=== PATIENT | male | born 1990 | race Caucasian/White ===

== ENCOUNTER 2025-02-14 22:06 | Emergency (ER) | payer SELFPAY ==
--- NOTE | ~2025-02-14 | XR_ITS ---
HISTORY: punch tv 3 days ago, RED, SWOLLEN, LIMITED ROM COMPARISON: None TECHNIQUE: 3 views of the right hand were performed. FINDINGS: No acute displaced fracture is identified. The joint spaces are preserved. The carpal arcs are intact. Bone mineralization is age-appropriate. Significant dorsal soft tissue swelling. No radiopaque foreign body is identified. IMPRESSION: Significant soft tissue swelling, without acute displaced fracture as detailed above. Reviewed, dictated and finalized at location A.
--- OUTSIDE RECORDS SUMMARY | 2025-02-14 22:08 | XMS_ITS | Clinical Summary ---
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 Phone Unavailable Primary Care Provider Unavailabl e Immunizations Immunization Administration Dates Next Due Covid-19, Mrna, Lnp-s, PF, 5 0 mcg/0.25 mL dose (Moderna) 09/19/2021 Social History Tobacco Use Types Packs/Day Years Used Date Smoking Tobacco: Never Assessed Sex and Gender Information Value Date Recorded Sex Assigned at Not on file Legal Sex Male 10:10 PM CDT Gender Identity Not on file Sexual Orientation Not on file Plan of Treatment Health Maintenance Due Date Last Done Comments Hepatitis C Virus (HCV) Screening 1988 TdaP Immunization 1988 Hepatitis B Immunization (1 of 3 - 19+ 3-dose series) 2007 Influenza Immunization (#1) 2024 07/14/2014 SARS-COV-2 Immunization ( season) 2024 09/19/2021, 01/16/2021, 12/19/2020 Respiratory Syncytial Virus (RSV) Immunization (Adult) (1 - 1-dose 75+ series) 2063 DTaP/Tdap/Td Immunization Discontinued 01/29/1994 Meningococcal Immunization (ACWY) Aged Out No longer eligible based on patient's age to complete this topic Pneumococcal Immunization Combined Aged Out No longer eligible based on patient's age to complete this topic Rotavirus Immunization Aged Out No lo nger eligible based on patient's age to complete this topic
[2025-02-14 22:28] VITALS: BP 101/56; PULSE 71; RESP 18; O2SAT 99
[2025-02-14 22:30] VITALS: TEMP 36.7
--- NOTE | 2025-02-14 22:54 | ED_ITS ---
HPI - Recheck/Abnormal Lab/Rx General Chief Complaint: Recheck/Abnormal Lab/Rx <Amanda Quezada PA-C - Last Filed: 02/15/25 03:30> Stated Complaint: swelling, pain-sutures <RENATA Dobbins Last Filed: 02/15/25 03:30> Time Seen by Provider: 02/14/25 22:33 <RENATA Dobbins Last Filed: 02/15/25 03:30> History of Present Illness HPI narrative: 34-year-old male presents to the emergency department for redness and pain to the dorsum of his right hand. Patient had 7 sutures placed to his right hand 3 days ago at [place] emergency department after punching and TV. States he had x-rays performed but is uncertain of the results. He had 7 stitches placed to the dorsum of his right hand. He states that [place] told him that they were calling and antibiotics, however they were not with the pharmacy. States 6 hours ago he began developing redness, pain and swelling around his suture site. He also notes a clear and bloody drainage. Denies fevers. <Amanda Quezada PA-C - Last Filed: 02/15/25 03:30> Related Data Allergies/Adverse Reactions: Allergies Allergy/AdvReac Type Severity Reaction Status Date / Time morphine Allergy Hives Verified 02/14/25 22:07 <Amanda Quezada PA-C - Last Filed: 02/15/25 03:30> Review of Systems 2 Review of Systems: All systems reviewed & are unremarkable except as noted in HPI and below <RENATA Dobbins Last Filed: 02/15/25 03:30> Exam 2 Narrative: GENERAL: Well-appearing, well-nourished, and in no acute distress. HEAD: Normocephalic, atraumatic. EYES: EOMI. ENT: Nares clear, no rhinorrhea or epistaxis. Mucous membranes moist. NECK: Supple. CHEST: Clear to auscultation. No respiratory distress. HEART: Regular rate and rhythm. No murmur heard. Normal peripheral pulses. EXTREMITIES: Normal range of motion. No edema. SKIN: Healing laceration of the dorsum of the right hand with [address], no wound dehiscence. There is surrounding erythema, warmth and tenderness, no spontaneous drainage. Swelling noted to the dorsum of the hand. Limited range of motion secondary to pain. Cap refill less than 2 all digits. Radial pulse 2 +. Compartments soft. Sensation intact. NEURO: No focal deficits. Alert and oriented x3 <RENATA Dobbins Last Filed: 02/15/25 03:30> Course PORT SURVEYOR/PA Physician Supervision I agree with midlevel documentation; I performed the medical decision making component of this evaluation. <Ping Stapleton MD - Last Filed: 02/15/25 03:42> Vital Signs Vital signs: Vital Signs Pulse Rate 71 02/14/25 22:28 Respiratory Rate 18 02/14/25 22:28 Blood Pressure 101/56 L 02/14/25 22:28 Pulse Oximetry 99 02/14/25 22:28 Temperature 98.1 F 02/14/25 22:30 Pulse Rate 102 H 02/15/25 03:28 Respiratory Rate 19 02/15/25 03:28 Blood Pressure 144/75 H 02/15/25 03:28 Pulse Oximetry 99 02/15/25 03:28 <Amanda Quezada PA-C - Last Filed: 02/15/25 03:30> Vital Signs Pulse Rate 71 02/14/25 22:28 Respiratory Rate 18 02/14/25 22:28 Blood Pressure 101/56 L 02/14/25 22:28 Pulse Oximetry 99 02/14/25 22:28 Temperature 98.1 F 02/14/25 22:30 Pulse Rate 102 H 02/15/25 03:28 Respiratory Rate 19 02/15/25 03:28 Blood Pressure 144/75 H 02/15/25 03:28 Pulse Oximetry 99 02/15/25 03:28 <Ping Stapleton MD - Last Filed: 02/15/25 03:42> Procedures Other Procedure Procedure 1: Other Procedure: Seven sutures removed at the dorsum of the right hand with no complications. <RENATA Dobbins Last Filed: 02/15/25 03:30> MDM - Recheck/Abnormal Lab/Rx MDM Narrative Medical decision making narrative: 34-year-old male presents to emergency department for swelling and pain to the dorsum of his right hand that started today. Patient had 7 sutures placed at an outside hospital 3 days ago. Patient is afebrile and nontoxic appearing. Exam is significant for the cellulitis to the dorsum of the right hand with 7 overlying intact sutures. Sutures were removed which opened the wound and drained approximately 5 cc of purulence and serosanguineous fluid with immediate improvement in symptoms. X-ray does show significant soft tissue swelling without acute displaced fracture. Given rapidly progressing cellulitis, patient agreeable to lab work and a dose of IV antibiotics. CBC does show leukocytosis with a white count of 17.6. Chemistries are unremarkable. Patient received IV fluids, clindamycin, [place] and Toradol with improvement. The wound was closed loosely with Steri-Strips. I did offer admission for IV antibiotics however he declined he would like to trial oral antibiotics. He was advised to follow-up closely with Hand surgery and given strict ED return precautions. He is agreeable with the plan verbalized understanding. Discharged in stable condition. <Amanda Quezaad PA-C - Last Filed: 02/15/25 03:30> 34-year-old male presents to emergency department for swelling and pain to the dorsum of his right hand that started today. Patient had 7 sutures placed at an outside hospital 3 days ago. Patient is afebrile and nontoxic appearing. Exam is significant for the cellulitis to the dorsum of the right hand with 7 overlying intact sutures. Sutures were removed which opened the wound and drained approximately 5 cc of purulence and serosanguineous fluid with immediate improvement in symptoms. X-ray does show significant soft tissue swelling without acute displaced fracture. Given rapidly progressing cellulitis, patient agreeable to lab work and a dose of IV antibiotics. CBC does show leukocytosis with a white count of 17.6. Chemistries are unremarkable. Patient received IV fluids, clindamycin, [place] and Toradol with improvement. The wound was closed loosely with Steri-Strips. I did offer admission for IV antibiotics however he declined he would like to trial oral antibiotics and go home at this time. He was advised to follow-up closely with Hand surgery and given strict ED return precautions. He is agreeable with the plan verbalized understanding. Discharged in stable condition. <Ping Stapleton MD - Last Filed: 02/15/25 03:42> Lab Data Result diagrams: 02/15/25 01:27 02/15/25 01:27 <Amanda Quezada PA-C - Last Filed: 02/15/25 03:30> Labs: Lab Results 02/15/25 Range/Units 01:27 WBC 17.6 H (4.5-10.0) K/mm3 RBC 4.61 (4.6-6.20) M/mm3 Hgb 15.1 (14.0-18.0) g/dL Hct 44.9 (42.0-52.0) % MCV 97.4 (80-100) fl MCH 32.8 (26-34) pg MCHC 33.6 (32-36) g/dl RDW 12.9 (11.5-14.5) % Plt Count 264 (150-375) k/mm3 MPV 10.1 (7.4-10.4) fl Immature Gran % (Auto) 0.3 (0-0.5) % Neut % (Auto) 87.9 H (45.5-73.1) % Lymph % (Auto) 5.3 L (18.3-44.2) % [place] % (Auto) 6.0 (2.6-8.5) % Eos % (Auto) 0.2 (0-4.4) % Baso % (Auto) 0.3 (0.2-1.2) % Lymph # (Auto) 0.93 (0.9-3.2) K/mm3 [place] # (Auto) 1.1 H (0.1-0.6) K/mm3 Eos # (Auto) 0.0 (0-0.3) K/mm3 Baso # (Auto) 0.1 (0.0-0.1) K/mm3 Abs Immat Gran (auto) 0.06 H (0.00-0.031) K/mm3 Absolute Neuts (auto) 15.5 H (1.3-6.7) K/mm3 Absolute Nucleated RBC 0.000 (0.0-0.012) K/mm3 Nucleated RBC % 0.0 (0.0-0.2) % Sodium 141 (137-145) mmol/L Potassium 3.5 (3.4-5.0) mmol/L Chloride 102 (98-107) mmol/L Carbon Dioxide 28 (22-30) mmol/L Anion Gap 11 (4-12) mmol/L BUN 14 (9-20) mg/dL Creatinine 0.89 (0.7-1.3) mg/dL Estim Creat Clear Calc 114 ml/min Estimated GFR > 60 (59 - ) Glucose 112 H (65-110) mg/dL Calcium 10.0 (8.4-10.2) mg/dL <Amanda Quezada PA-C - Last Filed: 02/15/25 03:30> Lab Results 02/15/25 Range/Units 01:27 WBC 17.6 H (4.5-10.0) K/mm3 RBC 4.61 (4.6-6.20) M/mm3 Hgb 15.1 (14.0-18.0) g/dL Hct 44.9 (42.0-52.0) % MCV 97.4 (80-100) fl MCH 32.8 (26-34) pg MCHC 33.6 (32-36) g/dl RDW 12.9 (11.5-14.5) % Plt Count 264 (150-375) k/mm3 MPV 10.1 (7.4-10.4) fl Immature Gran % (Auto) 0.3 (0-0.5) % Neut % (Auto) 87.9 H (45.5-73.1) % Lymph % (Auto) 5.3 L (18.3-44.2) % [place] % (Auto) 6.0 (2.6-8.5) % Eos % (Auto) 0.2 (0-4.4) % Baso % (Auto) 0.3 (0.2-1.2) % Lymph # (Auto) 0.93 (0.9-3.2) K/mm3 [place] # (Auto) 1.1 H (0.1-0.6) K/mm3 Eos # (Auto) 0.0 (0-0.3) K/mm3 Baso # (Auto) 0.1 (0.0-0.1) K/mm3 Abs Immat Gran (auto) 0.06 H (0.00-0.031) K/mm3 Absolute Neuts (auto) 15.5 H (1.3-6.7) K/mm3 Absolute Nucleated RBC 0.000 (0.0-0.012) K/mm3 Nucleated RBC % 0.0 (0.0-0.2) % Sodium 141 (137-145) mmol/L Potassium 3.5 (3.4-5.0) mmol/L Chloride 102 (98-107) mmol/L Carbon Dioxide 28 (22-30) mmol/L Anion Gap 11 (4-12) mmol/L BUN 14 (9-20) mg/dL Creatinine 0.89 (0.7-1.3) mg/dL Estim Creat Clear Calc 114 ml/min Estimated GFR > 60 (59 - ) Glucose 112 H (65-110) mg/dL Calcium 10.0 (8.4-10.2) mg/dL <Ping Stapleton MD - Last Filed: 02/15/25 03:42> Discharge Plan Discharge Clinical Impression: Infection involving suture with abscess Cellulitis Qualifiers: Site of cellulitis: extremity Site of cellulitis of extremity: upper extremity Laterality: right Qualified Code(s): L03.113 - Cellulitis of right upper limb <Amanda Quezada PA-C - Last Filed: 02/15/25 03:30> Patient Disposition: Home <RENATA Dobbins Last Filed: 02/15/25 03:30> Condition: Stable <RENATA Dobbins Last Filed: 02/15/25 03:30> Instructions: Antibiotic Form, Cellulitis (ED), Abscess (ED) <Amanda Quezada PA-C - Last Filed: 02/15/25 03:30> Additional Instructions: Your evaluated in the emergency department for an infection to the stitches in her right hand. Seven stitches were removed and Steri-Strips replaced. You were found have an infection to her hand. Please take the antibiotics as directed. Follow-up closely with a hand surgeon. Return to the emergency department if you developed spreading or worsening redness, fever, increasing pain, or other concerning symptoms. <Amanda Quezada PA-C - Last Filed: 02/15/25 03:30> Patient Language: Georgian <RENATA Dobbins Last Filed: 02/15/25 03:30> Prescriptions: New doxycycline monohydrate 100 mg capsule 100 mg PO BID Qty: 14 0RF naproxen 500 mg tablet 500 mg PO BID PRN (Reason: pain) Qty: 20 0RF <Amanda Quezada PA-C - Last Filed: 02/15/25 03:30> Follow-up/Referrals: Saloni Christine MD [Physician] - PHYSICIAN,[employer] COMPOUNDER [Primary Care Provider] - <Amanda Quezada PA-C - Last Filed: 02/15/25 03:30> Stand Alone Forms: Work/School Release IP <RENATA Dobbins Last Filed: 02/15/25 03:30>
--- OUTSIDE RECORDS SUMMARY | 2025-02-14 22:57 | XMS_ITS | Clinical Summary ---
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
[2025-02-14] MEDS: HYDROcodone/acetaminophen (*CRX) 5-325 MG TABLET 1 TAB PO (23:28)
[2025-02-14 23:31] VITALS: RESP 16; O2SAT 98
[2025-02-15 00:04] VITALS: BP 132/76; PULSE 102; RESP 15; O2SAT 98
[2025-02-15 01:34] LABS: Basophils Absolute Auto 0.1 K/mm3 (0.0-0.1); Basophils Percent Auto 0.3 % (0.2-1.2); Eosinophils Percent Auto 0.2 % (0-4.4); Hematocrit 44.9 % (42.0-52.0); Hemoglobin 15.1 g/dL (14.0-18.0); Immature Granulocyte Absolute 0.06 K/mm3 (0.00-0.031); Immature Granulocyte Percent A 0.3 % (0-0.5); Lymphocytes Absolute Auto 0.93 K/mm3 (0.9-3.2); Lymphocytes Percent Auto 5.3 % (18.3-44.2); Mean Corpuscular HGB Conc 33.6 g/dl (32-36); Mean Corpuscular Hemoglobin 32.8 pg (26-34); Mean Corpuscular Volume 97.4 fl (80-100); Mean Platelet Volume 10.1 fl (7.4-10.4); Monocytes Absolute Auto 1.1 K/mm3 (0.1-0.6); Neutrophils Absolute Auto 15.5 K/mm3 (1.3-6.7); Neutrophils Percent Auto 87.9 % (45.5-73.1); Platelet Count Result 264 k/mm3 (150-375); Red Blood Count 4.61 M/mm3 (4.6-6.20); Red Cell Distribution Width 12.9 % (11.5-14.5); White Blood Count 17.6 K/mm3 (4.5-10.0)
[2025-02-15] MEDS: SODIUM CHLORIDE 0.9% IV 1,000 ML 999 ML IV CONT (01:39)
[2025-02-15] MEDS: CLINDAMYCIN 900 MG/D5W 50 ML 900 MG/50 ML PIGGYBACK 50 MG IVPB (01:40)
[2025-02-15 01:44] LABS: Anion Gap 11 mmol/L (4-12); Blood Urea Nitrogen 14 mg/dL (9-20); Carbon Dioxide 28 mmol/L (22-30); Chloride 102 mmol/L (98-107); Estimated CRCL calculation 114 ml/min; Estimated Glomerular Filt Rate > 60; Glucose 112 mg/dL (65-110); Potassium 3.5 mmol/L (3.4-5.0); Sodium 141 mmol/L (137-145)
[2025-02-15] MEDS: KETOROLAC 30 MG/ML VIAL (*BKC) IV PUSH (02:42)
[2025-02-15 03:28] VITALS: BP 144/75; PULSE 102; RESP 19; O2SAT 99
[2025-02-15] MEDS: HYDROmorphone HCL INJ (*CRX) 2 MG/ML VIAL 0.5 MG IV PUSH (03:33)
== END 2025-02-15 03:47 | disposition home or self-care (01) ==
PROVIDERS: Emergency Provider Physician Assistant
DX: T81.49XA Infection following a procedure, other surgical site, initial encounter (principal); L03.113 Cellulitis of right upper limb
CPT/HCPCS: 36415; 73130; 80048; 85025; 96365; 96375; 99284; A9270; J1171; J1885; J7030